=== PATIENT | female | born 1960 | race Caucasian/White ===

== ENCOUNTER → 2024-05-01 07:52 | Outpatient (REF) | payer BC, SELFPAY | LOC: HWWDC 07:52 | PROVIDERS: ATTENDING PHYSICIAN Obstetrics & Gynecology; FAMILY PHYSICIAN Family Medicine | DX: Z12.31 Encounter for screening mammogram for malignant neoplasm of breast (principal) | CPT/HCPCS: 77063; 77067 ==

== ENCOUNTER → 2024-07-28 13:09 | Outpatient (REF) | payer BC, SELFPAY | LOC: WDC 13:09 | PROVIDERS: ATTENDING PHYSICIAN Obstetrics & Gynecology; FAMILY PHYSICIAN Family Medicine | DX: R92.2 Inconclusive mammogram (principal) | CPT/HCPCS: 76641 ==

== ENCOUNTER → 2025-01-01 16:14 | Outpatient (REF) | payer BC, SELFPAY | LOC: MRI 3T 16:14 | PROVIDERS: ATTENDING PHYSICIAN Family Medicine | DX: N60.09 Solitary cyst of unspecified breast (principal) | CPT/HCPCS: 77049; A9585 ==

== ENCOUNTER 2025-09-20 07:33 | Emergency (ER) | payer BC, SELFPAY ==
[2025-09-20 07:34] VITALS: BP 110/76
[2025-09-20 08:06] VITALS: BP 108/69
[2025-09-20 08:15] VITALS: BMI 20.2
--- NOTE | 2025-09-20 08:29 | ED.GENMED ---
History of Present Illness
General
Chief Complaint: Abdominal Symptoms
Time Seen by Provider: 09/20/25 08:11
History of Present Illness
History of Present Illness:
64-year-old otherwise healthy female presents the emergency department for evaluation of waxing waning diarrhea for the past 2 weeks. Worsened again last night with voluminous nonbloody diarrhea thus prompting her to come to the emergency
department today. Denies fever, chills, night sweats, weight loss, steatorrhea, melena, or abdominal pain. Does note that she was recently prescribed etodolac 1 month ago for musculoskeletal pain
Review of Systems
Review of Systems
Allergies reviewed?: Yes
All Other Systems: ROS reviewed and negative except as documented in HPI and ROS
Phy Exam
Physical Exam
Physical Exam:
GEN: Well appearing, NAD, WDWN
HEENT: Oral mucosa moist, no scleral icterus
Cardiac: Regular rate
Lung: No respiratory distress, no tachypnea
Abdomen: Soft, nontender
MSK: No gross deformity or injuries
Skin: Good color, no pallor or jaundice, no rashes
Neuro: AO x3, moves all extremities freely
Psych: Calm, cooperative
Course
Orders/Labs/Results
Orders:
Orders
09/20/25 08:30
CMP [Comprehensive Metabolic Panel] Urgent
Complete Blood Count/With Diff Urgent
09/20/25 08:31
Stool Culture Urgent
[facility] Source: Feces/Stool
Specimen Description:
Date Specimen was Collected: 09/20/25
Time Specimen was Collected: 08:30
Abnormal Lab Results
09/20/25
08:30
WBC 3.8 L 10^3/uL
(4.8-10.8)
Absolute Lymphs (auto) 1.1 L 10^3/uL
(1.2-3.4)
Monocytes % 13.9 H %
(1.7-9.3)
Carbon Dioxide 31 H mmol/L
(22-30)
AST 46 H U/L
(14-36)
ALT 59 H U/L
(0-35)
09/20/25 08:30
09/20/25 08:30
Vital Signs
Initial and Last Documented VS:
Initial Vital Signs
Temp Pulse Resp BP Pulse Ox
97.4 F 77 18 110/76 99
09/20/25 07:34 09/20/25 07:34 09/20/25 07:34 09/20/25 07:34 09/20/25 07:34
Last Documented Vital Signs
Temp Pulse Resp BP Pulse Ox
98.8 F 54 16 105/61 99
09/20/25 09:22 09/20/25 09:22 09/20/25 09:22 09/20/25 09:22 09/20/25 08:30
MDM/Problems Addressed
MDM/Problems Addressed:
Patient is clinically well with normal labs. Stool specimen is sent for culture, no risk factors for C. difficile or parasitic infection. Clinically stable for outpatient management, no indication for empiric antibiotics while awaiting stool
culture testing
*Pulse Oximetry
SaO2: 99
Oxygen Mode of Delivery: Room air
Patient hypoxic: no
*Critical Care Note
Total Time (30-74mins, 75-104mins- exclusive of procedures): Not Applicable
ED Attending Note
-
Portions of this chart may have been created with voice recognition software.� Occasional wrong word or��sound alike� substitutions may have occurred due to the inherent limitations of voice recognition software.
Discharge Plan
Departure
Patient Disposition: Home (Routine Discharge)
Date of Disposition: 09/20/25
Time of Disposition: 09:08
Patient with high blood pressure during this ER visit?: No
Discharge Problem:
Acute diarrhea
Instructions: Diarrhea in teens and adults
Activity Restrictions/Additional Instructions:
Stool culture testing will results in 24-48 hours, and you will receive a phone call with any positive result that warrants antibiotics
Interventions
Interventions:
*Risk Screen - Suicide Last Done: 09/20/25 07:34
*General Assessment Last Done: 09/20/25 07:34
*Neglect/Abuse Screening Last Done: 09/20/25 07:34
*ED- Fall Risk Assessment Last Done: 09/20/25 08:28
*ED COVID-19 Vaccine History Last Done: 09/20/25 08:28
*ED Influenza Vaccine History Last Done: 09/20/25 08:28
*Nursing Disposition Last Done: 09/20/25 09:22
[facility] Assessment Last Done: 09/20/25 08:15
Discharge Date and Time
Discharge Date/Time: 09/20/25 09:22
Print Language: IRAQI
[2025-09-20 08:42] LABS: Hematocrit 40.9 % (37.0-47.0); Hemoglobin 13.7 g/dL (12.0-16.0); Mean Corp Hgb Conc. 33.5 g/dL (33.0-37.0); Mean Corpuscular Volume 91.1 fL (81.0-99.0); Nucleated Red Blood Cells % 0 %; Platelet Count 264 10^3/uL (130-400); Red Cell Dist. Width 12.8 % (11.5-14.5)
[2025-09-20 08:52] LABS: ALT (SGPT) 59 U/L (0-35); AST (SGOT) 46 U/L (14-36); Albumin 4.3 g/dl (3.5-5.0); Alkaline Phosphatase 67 U/L (38-126); Blood Urea Nitrogen 10 mg/dl (7-17); Calcium 9.6 mg/dl (8.4-10.2); Carbon Dioxide 31 mmol/L (22-30); Chloride 104 mmol/L (98-107); Estimated Creatinine Clearance 81 ml/min; Glucose 85 mg/dl (70-99); Potassium 4.1 mmol/L (3.5-5.1); Sodium 137 mmol/L (135-145); Total Protein 6.7 g/dl (6.3-8.2); eGFR > 60.00
[2025-09-20 09:00] VITALS: BP 105/61
--- NOTE | 2025-09-20 09:21 | EDRN ---
Reviewed discharge instructions with patient. Verbalized understanding. Ambulated with steady gait to the lobby.
[2025-09-20 09:22] VITALS: BP 105/61
== END 2025-09-20 09:22 | disposition home or self-care (01) ==
LOC: EMR 07:33
PROVIDERS: EMERGENCY PHYSICIAN Emergency Medicine; FAMILY PHYSICIAN Family Medicine
DX: R19.7 Diarrhea, unspecified (principal)
CPT/HCPCS: 99283; 80053; 85025; 87045; 87046; 87077; 87427